=== PATIENT | male | born 1965 | race African-American/Black ===

== ENCOUNTER 2020-01-08 11:01 | Outpatient (RCR) | payer MEDICAID, SELFPAY | END 2020-01-08 23:59 | disposition home or self-care (01) | LOC: ANHAUDIO 11:01 | PROVIDERS: PCP Internal Medicine Infectious Disease; Visit Provider Internal Medicine Infectious Disease | DX: Z46.1 Encounter for fitting and adjustment of hearing aid (principal) | CPT/HCPCS: 99199 ==

== ENCOUNTER 2020-01-28 09:45 | Outpatient (CLI) | payer OTHER, SELFPAY | END 2020-01-28 09:46 | disposition home or self-care (01) | PROVIDERS: PCP Internal Medicine Infectious Disease; Visit Provider Internal Medicine Infectious Disease | DX: H90.3 Sensorineural hearing loss, bilateral (principal) | CPT/HCPCS: 92557; 92567 ==

== ENCOUNTER 2020-01-28 09:49 | Outpatient (CLI) | payer OTHER, SELFPAY | END 2020-01-28 11:29 | disposition home or self-care (01) | PROVIDERS: PCP Internal Medicine Infectious Disease; Visit Provider Surgery | DX: H91.93 Unspecified hearing loss, bilateral (principal) | CPT/HCPCS: 99199 ==

== ENCOUNTER 2020-03-02 10:00 | Outpatient (RCR) | payer OTHER, SELFPAY | END 2020-03-02 23:59 | disposition home or self-care (01) | LOC: ANHAUDIO 10:00 | PROVIDERS: PCP Internal Medicine Infectious Disease; Visit Provider Internal Medicine Infectious Disease | DX: Z46.1 Encounter for fitting and adjustment of hearing aid (principal) | CPT/HCPCS: 99199; V5160; V5261 ==

== ENCOUNTER 2020-06-13 14:17 | Outpatient (RCR) | payer OTHER, SELFPAY | END 2020-06-13 23:59 | disposition home or self-care (01) | LOC: ANHAUDIO 14:17 | PROVIDERS: PCP Internal Medicine Infectious Disease; Visit Provider Internal Medicine Infectious Disease | DX: Z46.1 Encounter for fitting and adjustment of hearing aid (principal) | CPT/HCPCS: 99199 ==

== ENCOUNTER 2020-11-22 09:06 | Outpatient (RCR) | payer OTHER, SELFPAY | END 2020-11-22 23:59 | disposition home or self-care (01) | LOC: ANHAUDIO 09:06 | PROVIDERS: PCP Internal Medicine Infectious Disease; Visit Provider Internal Medicine Infectious Disease | DX: Z46.1 Encounter for fitting and adjustment of hearing aid (principal) | CPT/HCPCS: 99199 ==

== ENCOUNTER 2021-07-27 15:30 | Outpatient (RCR) | payer OTHER, SELFPAY | END 2021-07-27 23:59 | disposition home or self-care (01) | LOC: ANHAUDIO 15:30 | PROVIDERS: PCP Internal Medicine Infectious Disease; Visit Provider Internal Medicine Infectious Disease | DX: Z46.1 Encounter for fitting and adjustment of hearing aid (principal) | CPT/HCPCS: 99199 ==

== ENCOUNTER 2022-01-05 12:00 | Outpatient (RCR) | payer OTHER, SELFPAY | END 2022-01-05 23:59 | disposition home or self-care (01) | LOC: ANHAUDIO 12:00 | PROVIDERS: PCP Internal Medicine Infectious Disease; Visit Provider Internal Medicine Infectious Disease | DX: Z46.1 Encounter for fitting and adjustment of hearing aid (principal) | CPT/HCPCS: 99199 ==